=== PATIENT | male | born 1980 | race Caucasian/White ===

== ENCOUNTER 2022-06-04 18:52 | Emergency (ER) | payer OTHER ==
[2022-06-04 19:18] VITALS: BP 123/80; PULSE 72; RESP 19; TEMP 98.3; BMI 26.8
== END 2022-06-04 21:50 | disposition home or self-care (01) ==
LOC: JERFT 18:52 → JER 18:52 → JERFT 21:50
DX: H60.501 Unspecified acute noninfective otitis externa, right ear (principal); H66.91 Otitis media, unspecified, right ear
CPT/HCPCS: 70480-TC; 99284-25